=== PATIENT | female | born 1965 | race Caucasian/White ===

== ENCOUNTER 2019-11-03 00:09 | Emergency (ER) | payer OTHER ==
--- NOTE | 2019-11-03 00:47 | PDOC ---
History of Present Illness - General Stated Complaint: ABD AND BACK PAIN Time Seen by Provider: 11/03/19 00:37 Past History - Past Medical History Allergies/Adverse Reactions: Allergies Allergy/AdvReac Type Severity Reaction Status Date / Time No Known Allergies Allergy Verified 11/03/19 01:03 ED Treatment Course - LABORATORY CBC & Chemistry Diagram: 11/03/19 01:10 11/03/19 01:10 Medical Decision Making - Medical Decision Making 11/03/19 01:30 HPI: 54yo F hx HTN, DM, HLD, occasional alcohol use (3 glasses gin/vodka yesterday) presents from home c/o gradual onset constant worsening epigastric pain radiating to center mid-back since 1929 today associated with NBNB emesis x10. Pt in [place] prior to 1930. Same pain years ago, unknown cause. No meds tried due to vomiting. Denies daily alcohol use, drug use, smoking, hx gallstones, hx kidney stones, hx pancreatitis, travel, abdominal surgeries, new or odd foods, recent antibiotics, fever, chills, fatigue, headache, dizziness, numbness/ti ngling, weakness, vision changes, shortness of breath, cough, chest pain, palpitations, leg swelling, blood in stool, diarrhea, constipation, dysuria, urgency, frequency, hematuria, confusion. PCP - [facility] ROS: Constitutional: Negative for chills, fever, fatigue, diaphoresis. HENT: Negative for sore throat, rhinorrhea, congestion. Eyes: Negative for visual disturbance. Respiratory: Negative for shortness of breath, cough, and wheezing. Cardiovascular: Negative for chest pain, palpitations, and leg swelling. Gastrointestinal: Positive for abdominal pain, nausea, vomiting. Negative for blood in stool, constipation, diarrhea. Genitourinary: Negative for dysuria, flank pain, and hematuria. Musculoskeletal: Positive for mid back pain. Negative for myalgias, and neck pain. Skin: Negative for rash. Neurological: Negative for light-headedness, dizziness, vertigo, syncope, weakness, numbness and headaches. Psychiatric/Behavioral: Negative for behavioral problems and confusion. PE: Gen: Alert, NAD, uncomfortable-appearing, actively vomiting HEENT: PERRL, EOMI, MMM, NCAT. No conjunctival pallor. Sclera are non-icteric. CV: Regular rate and rhythm. No murmurs, rubs, or gallops. PULM: No resp distress. CTAB, no wheezes, rales, or rhonchi. ABD: soft, +epigastric TTP, ND, no rebound tenderness or guarding, +R CVA tenderness. BACK: No TTP of c/t/l-spine. No step-offs or deformities. MSK: No bony deformities. 2+ pulses in all extremities. NEURO: AAOx3. PERRL. No gross CN deficits. Strength and sensation grossly intact throughout. EXTREMITIES: No cyanosis. No clubbing. No edema. No calf tenderness. PSYCH: Normal mood and thought pattern. SKIN: Warm and dry. Normal capillary refill. No rashes. No jaundice. MDM: 54yo F hx HTN, DM, HLD, occasional alcohol use (3 glasses gin/vodka yesterday) presents from home with gradual onset constant worsening epigastric pain radiating to center mid-back since 1930 today associated with NBNB emesis x10. Hemodynamically stable, afebrile, actively vomiting, +epigastric and R CVA tenderness. Ddx: pancreatitis, cholelithiasis/cystitis, gastritis, gastroenteritis, UTI/pyelo, kidney stone. Due to epigastric location and lack of F/C/D/C, lower concern for colitis, diverticulitis, appendicitis. Consider CTAP if w/u equivocal. Based on presentation and exam, low concern for ACS/TN, arrhythmia, AAA, dissection, metabolic derangement, anemia. -GI cocktail -EKG -CBC,CMP,Coags,Mg,Phos,Lipase,Cardiac profile,UA/UC -RUQ US -If w/u equivocal and sx persist, consider CTAP -Dispo: pending w/u 11/03/19 01:56 EKG reviewed: NSR, 76bpm, PA interval 162ms, QTc 465ms, normal axis, no e/o acute ischemia Pt signed out to Dr Aquino and night team. Pending labs, US, and reassessment. Discharge - Discharge Information Problems reviewed: Yes Clinical Impression/Diagnosis: Symptomatic cholelithiasis Condition: Stable Disposition: TRANSFER ACUTE CARE/OTHER HOSP - Follow up/Referral Referrals: Gordy Mejía PA [Primary Care Provider] - - Patient Discharge Instructions - Post Discharge Activity
--- NOTE | 2019-11-03 00:48 | PDOC ---
Attending Attestation - Resident Resident Name: DimaritaJeriMikaela - ED Attending Attestation I have performed the following: I have examined & evaluated the patient, The case was reviewed & discussed with the resident, I agree w/resident's findings & plan - HPI HPI: 11/03/19 01:50 54 YOF with h/o HTN, HLD, DM2, presenting with acute onset of epigastric AP, a/w nausea and NBNB emesis x multiple episodes beginning 730pm had 3 shots of alcohol yesterday. no abdominal surgeries. - Physicial Exam PE: 11/03/19 00:48 Family, neck cancer, distribution findings presents agree with the resident's HPI and PE as documented in the electronic medical record. in moderate distress, 2/2 vomiting. EOMI, PERRL, nl conjunctiva, anicteric; neck supple. lungs clear, RRR, abdomen soft +epigastric TTP, no rebound, guarding. Back nontender. MIRANDA x4, no focal neuro deficits. No peripheral edema. normal color for ethnicity, WWP. 11/03/19 01:51 - Medical Decision Making 11/03/19 01:53 Vital Signs Temp Pulse Resp BP Pulse Ox 98.1 F 76 18 138/65 100 11/03/19 01:05 11/03/19 01:05 11/03/19 01:05 11/03/19 01:05 11/03/19 01:05 DDx abdominal pain: Renal colic, biliary colic, metabolic/electrolyte derangements. GERD, PUD, esophageal spasm, pancreatitis, hepatitis, constipation, colitis, gastroenteritis, cholecystitis, UTI, pyelonephritis, ileus, SBO, medication side effect, hernia, appendicitis, diverticulitis, mesenteric ischemia. msk strain, mesenteric adenitis, psoas abscess. ACS, arrhythmia. perforation labs and lytes, r/o pancreatitis, lipase/LFTs RUQ sono to eval for biliary pathology - on my read, large GB stone, no findings to suggest acute misbah, no pericholecystic fluid, no wall edema or dilation. labs and lytes with normal lipase/lfts. +leukocytosis 15K s/o to Dr Yap pending sono, ultimate dispo. anticipate transfer to [facility] by patient's choice for symptomatic cholelithiasis and no surgery available here, also with leukocytosis, early inflammation vs symptomatic care 11/03/19 17:25 Heart Score/ECG Review #1 ECG reviewed & interpreted by me at: 01:25 General ECG Interpretation: Sinus Rhythm, Normal Rate, Normal Intervals 11/03/19 01:52 EKG normal sinus rhythm 76 bpm, no interval abnormalities, narrow QRS, ST and T wave segments and morphology normal. Nonspecific T wave abnormalities
[2019-11-03] MEDS ORDERED: MAG HYDROX/AL HYDROX/SIMETH 30 ML UNIT-DOSE CUP PO ONE (00:51)
[2019-11-03] MEDS ORDERED: FAMOTIDINE 20 MG/50 ML IVPB 20 MG/50 ML MG IVPB ONE (00:51)
[2019-11-03] MEDS ORDERED: SODIUM CHLORIDE 0.9% 500 ML INFUS.BAG IV ONE (00:51)
[2019-11-03] MEDS ORDERED: ACETAMINOPHEN 1000 MG/100 ML VIAL (NON FORMULARY) IVPB ONE (00:51)
[2019-11-03] MEDS ORDERED: ONDANSETRON 4 MG/2 ML VIAL IVPUSH ONE (00:51)
[2019-11-03 01:23] VITALS: BMI 24.7
[2019-11-03 01:33] LABS: BASO % 0.3 % (0-2.0); EOS % 0.1 % (0-4.5); HEMATOCRIT 40.2 % (32.4-45.2); LYMPH % 8.2 % (8-40); MCH 28.8 pg (25.7-33.7); MCHC 32.5 g/dl (32.0-36.0); MEAN CELL VOLUME 88.6 fl (80-96); MEAN PLT VOLUME 9.7 fl (7.5-11.1); MONO % 2.9 % (3.8-10.2); NEUT % 88.5 % (42.8-82.8); PLATELET COUNT 303 K/MM3 (134-434); RBC 4.54 M/mm3 (3.60-5.2); RDW 13.2 % (11.6-15.6); WHITE BLOOD COUNT 15.4 K/mm3 (4.0-10.0)
[2019-11-03 01:47] LABS: PROTHROMBIN TIME (PATIENT) 11.8 SEC (9.7-13.0)
[2019-11-03 01:57] LABS: ALBUMIN 4.3 g/dl (3.4-5.0); ALK PHOS 71 U/L (45-117); ANION GAP 9 MMOL/L (8-16); BILIRUBIN,TOTAL 0.4 mg/dL (0.2-1); BLOOD UREA NITROGEN 6.6 mg/dL (7-18); CALCIUM 8.8 mg/dL (8.5-10.1); CHLORIDE 100 mmol/L (98-107); CO2 27 mmol/L (21-32); CREATININE 0.6 mg/dL (0.55-1.3); GLUCOSE,RANDOM 184 mg/dL (74-106); LIPASE 150 U/L (73-393); MAGNESIUM 1.7 mg/dL (1.8-2.4); PHOSPHOROUS 2.8 mg/dL (2.5-4.9); POTASSIUM 4.1 mmol/L (3.5-5.1); SGOT/AST 29 U/L (15-37); SGPT/ALT 28 U/L (13-61); SODIUM 136 mmol/L (136-145); TOT PROT 8.4 g/dl (6.4-8.2)
--- NOTE | 2019-11-03 02:05 | PDOC ---
*Physical Exam - Vital Signs Last Vital Signs Temp Pulse Resp BP Pulse Ox 98.1 F 76 18 138/65 100 11/03/19 01:05 11/03/19 01:05 11/03/19 01:05 11/03/19 01:05 11/03/19 01:05 ED Treatment Course - LABORATORY CBC & Chemistry Diagram: 11/03/19 01:10 11/03/19 01:10 - ADDITIONAL ORDERS Additional order review: Laboratory Results 11/03/19 11/03/19 01:10 01:10 PT with INR 11.80 INR 1.00 Sodium 136 Potassium 4.1 Chloride 100 Carbon Dioxide 27 Anion Gap 9 BUN 6.6 L Creatinine 0.6 Est GFR (CKD-EPI)AfAm 121.46 Est GFR (CKD-EPI)NonAf 104.80 Random Glucose 184 H Calcium 8.8 Phosphorus 2.8 Magnesium 1.7 L Total Bilirubin 0.4 AST 29 ALT 28 Alkaline Phosphatase 71 Creatine Kinase 210 H Troponin I < 0.02 Total Protein 8.4 H Albumin 4.3 Lipase 150 11/03/19 01:10 RBC 4.54 MCV 88.6 MCHC 32.5 RDW 13.2 MPV 9.7 Neutrophils % 88.5 H Lymphocytes % 8.2 Monocytes % 2.9 L Eosinophils % 0.1 Basophils % 0.3 - RADIOLOGY Radiograph Interpretation: THIS IS A PRELIMINARY REPORT FROM [facility] DATE OF SERVICE: 2019-11-03 01:35:58 EXAM: ABDOMEN US -LIMITED , right upper quadrant and limited abdominal duplex IMPRESSION: Mild right hydronephrosis could be due to a non-visualized ureteral stone. 3.2 cm possibly impacted gallstone without secondary findings for cholecystitis although there is borderline CBD dilation and a nonvisualized CBD stone cannot be excluded. Consider further evaluation with CT or MRI as clinically indicated. 11/03/19 03:34 - Medications Given in the ED: ED Medications Discontinued Medications Generic Name Dose Route Start Last Admin Trade Name Freq PRN Reason Stop Dose Admin Acetaminophen 1,000 mg 11/03/19 00:51 11/03/19 01:19 Ofirmev Injection - IVPB 11/03/19 00:52 1,000 mg ONCE ONE Administration Ondansetron HCl 4 mg 11/03/19 00:51 11/03/19 01:20 Zofran Injection IVPUSH 03/07/20 00:52 4 mg NOW ONE Administration Medical Decision Making - Medical Decision Making Pt received as sign out Pt pending US read Leukocytosis to 15.4 noted LFTs unremarkable 11/03/19 02:04 US w/ cholelithiasis and CBD dilation 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 Killian to ED 11/03/19 03:24 Discharge - Discharge Information Problems reviewed: Yes Clinical Impression/Diagnosis: Symptomatic cholelithiasis Condition: Stable Disposition: TRANSFER ACUTE CARE/OTHER HOSP - Admission No - Follow up/Referral Referrals: Gordy Mejía PA [Primary Care Provider] - - Patient Discharge Instructions - Post Discharge Activity - Transfer to Acute Care Facility Receiving Facility Name: [facility] Accepting Physician:: Dr. Killian
[2019-11-03] MEDS ORDERED: CIPROFLOXACIN 500 MG TABLET (RESTRICTED TO ID) PO ONE (03:09)
[2019-11-03 03:50] LABS: PH,URINE 8.5 (5.0-8.0); URINE APPEARANCE CLEAR; URINE BILIRUBIN NEGATIVE (NEGATIVE); URINE COLOR YELLOW; URINE GLUCOSE (UA) 1+ (NEGATIVE); URINE KETONE TRACE (NEGATIVE); URINE LEUK ESTERASE NEGATIVE (NEGATIVE); URINE NITRITE NEGATIVE (NEGATIVE); URINE PROTEIN NEGATIVE (NEGATIVE); URINE UROBILINOGEN 0.2 mg/dL (0.2-1.0)
[2019-11-03 05:23] VITALS: BP 137/79; PULSE 82; TEMP 97.9
--- NOTE | 2019-11-03 10:28 | EKG ---
Test Reason : Blood Pressure : / mmHG Vent. Rate : 076 BPM Atrial Rate : 076 BPM P-R Int : 162 ms QRS Dur : 078 ms QT Int : 414 ms P-R-T Axes : 068 026 037 degrees QTc Int : 465 ms NORMAL SINUS RHYTHM POSSIBLE LEFT ATRIAL ENLARGEMENT BORDERLINE ECG NO PREVIOUS ECGS AVAILABLE Confirmed by Alexis Power MD ([id number]) on 11/03/2019 10:28:23 AM Referred By: Confirmed By:Alexis Power MD
== END 2019-11-03 05:09 | disposition short-term general hospital (02) ==
LOC: JER 00:09
PROC: 3E03329 Introduction of Other Anti-infective into Peripheral Vein, Percutaneous Approach (ICD-10-PCS; principal; 2019-11-03)
PROC: 3E033NZ Introduction of Analgesics, Hypnotics, Sedatives into Peripheral Vein, Percutaneous Approach (ICD-10-PCS; 2019-11-03)
PROC: 3E033GC Introduction of Other Therapeutic Substance into Peripheral Vein, Percutaneous Approach (ICD-10-PCS; 2019-11-03)
DX: K80.20 Calculus of gallbladder without cholecystitis without obstruction (principal); D72.829 Elevated white blood cell count, unspecified; I10 Essential (primary) hypertension; E78.5 Hyperlipidemia, unspecified; E11.9 Type 2 diabetes mellitus without complications
CPT/HCPCS: 36415; 71045-TC-FY; 76705-TC; 80053; 81003; 82550; 82553; 83690; 83735; 84100; 84484; 85025; 85610; 87086; 93005; 93010; 99285-25; J0131

== ENCOUNTER 2021-06-10 04:25 | Day surgery (SDC) | payer OTHER ==
[2021-06-08 09:12] VITALS: BMI 25.8
[~2021-06-10 04:25] MED LIST: ACETAMINOPHEN 325 MG TABLET (FP) PO PRN; BSS (NA/CA/MG/K) BALANCED SALT SOLUTION OPHTH SOLN 15 ML BOTTLE IO ONE; CHONDROITIN SU A/HYALUR SOD 1 KIT IO ONE; EPINEPHrine/PF 1 MG/1 ML (1:1,000) AMPULE IO ONE; LIDOCAINE HCL 1% PRESERVATIVE FREE - 30ML VIAL IO ONE; POVIDONE-IODINE 5% OPHTHALMIC PREP 30 ML SOLUTION OD ONE; TETRACAINE 0.5% OPHTH SOLN 2 ML BOTTLE OD ONE; TROPICAMIDE 1% OPHTH SOLN 15 ML BOTTLE OP SCH
[2021-06-10] MEDS ORDERED: OFLOXACIN 0.3% OPHTHALMIC SOLUTION 5 ML BOTTLE ONE (07:38)
[2021-06-10] MEDS ORDERED: PHENYLEPHRINE 2.5% OPTHALMIC DROP BOTTLE ONE (07:38)
[2021-06-10] MEDS ORDERED: CYCLOPENTOLATE HCL 1% OPHTH SOLN 2 ML BOTTLE ONE (07:38)
[2021-06-10] MEDS ORDERED: TROPICAMIDE 1% OPHTH SOLN 15 ML BOTTLE ONE (07:38)
[2021-06-10] MEDS ORDERED: KETOROLAC TROMETHAMINE 0.5% EYE DROP 1 DROP DROPS ONE (07:38)
[2021-06-10] MEDS: OFLOXACIN 0.3% OPHTHALMIC SOLUTION 5 ML BOTTLE OP SCH ×3 (08:00→08:10)
[2021-06-10] MEDS: PHENYLEPHRINE 2.5% OPHTH SOLN 15 ML BOTTLE OP SCH ×3 (08:00→08:10)
[2021-06-10] MEDS: CYCLOPENTOLATE HCL 1% OPHTH SOLN 2 ML BOTTLE OP SCH ×3 (08:00→08:10)
[2021-06-10] MEDS ORDERED: TROPICAMIDE 1% OPHTH SOLN 15 ML BOTTLE OP ONE ×3 (08:00→08:10)
[2021-06-10] MEDS: KETOROLAC TROMETHAMINE 0.5% EYE DROP 1 DROP DROPS OP SCH ×3 (08:00→08:10)
[2021-06-10] MEDS ORDERED: MIDAZOLAM HCL 2 MG/2 ML SINGLE DOSE VIAL ONE (09:20)
[2021-06-10] MEDS ORDERED: TETRACAINE 0.5% OPHTH SOLN 2 ML BOTTLE OD ONE (09:23)
[2021-06-10] MEDS ORDERED: POVIDONE-IODINE 5% OPHTHALMIC PREP 30 ML SOLUTION OD ONE (09:24)
[2021-06-10] MEDS ORDERED: BSS (NA/CA/MG/K) BALANCED SALT SOLUTION OPHTH SOLN 15 ML BOTTLE IO ONE (09:28)
[2021-06-10] MEDS ORDERED: LIDOCAINE HCL 1% PRESERVATIVE FREE - 30ML VIAL IO ONE (09:30)
[2021-06-10] MEDS ORDERED: CHONDROITIN SU A/HYALUR SOD 1 KIT IO ONE (09:31)
[2021-06-10] MEDS ORDERED: EPINEPHrine/PF 1 MG/1 ML (1:1,000) AMPULE IO ONE (09:35)
[2021-06-10] MEDS ORDERED: CHONDROITIN SU A/HYALUR SOD 1 KIT ONE (10:05)
[2021-06-10 10:14] VITALS: TEMP 97.8
[2021-06-10] MEDS ORDERED: LIDOCAINE HCL/PF 2% SDV 5ML VIAL ONE (10:16)
[2021-06-10] MEDS ORDERED: PROPOFOL 20 ML ONE (10:16)
[2021-06-10] MEDS ORDERED: ACETAMINOPHEN 325 MG TABLET (FP) ONE (10:31)
[2021-06-10 12:12] VITALS: BP 131/71; PULSE 58
[2021-06-10] MEDS ORDERED: TETRACAINE 0.5% OPHTH SOLN 2 ML BOTTLE ONE (12:57)
[2021-06-10] MEDS ORDERED: EPINEPHrine/PF 1 MG/1 ML (1:1,000) AMPULE ONE (12:57)
[2021-06-10] MEDS ORDERED: POVIDONE-IODINE 5% OPHTHALMIC PREP 30 ML SOLUTION ONE (12:57)
== END 2021-06-10 11:10 | disposition home or self-care (01) ==
LOC: JASU-SURG 04:25
PROVIDERS: ATTEND Ophthalmology
PROC: 08RJ3JZ Replacement of Right Lens with Synthetic Substitute, Percutaneous Approach (ICD-10-PCS; principal; 2021-06-10 09:00)
DX: H26.9 Unspecified cataract (principal); E11.9 Type 2 diabetes mellitus without complications; I10 Essential (primary) hypertension; Z79.84 Long term (current) use of oral hypoglycemic drugs
CPT/HCPCS: 81025; 82962